=== PATIENT | male | born 1955 ===

== ENCOUNTER 2019-10-08 17:56 | Outpatient (REF) | payer BC, SELFPAY ==
[2019-10-08 19:56] LABS: HCT 45.6 % (40.0-50.0); HGB 16.3 g/dL (13.5-17.5); Mean Corp. HGB Concentration 35.7 g/dL (32.0-36.0); Mean Corpuscular Volume 89.6 fL (80-95); Mean Platelet Volume 8.3 fL (8.0-11.0); Platelet Count 374 x1000/uL (130-400); RBC 5.09 m/cumm (4.50-6.00); RBC Distribution Width 12.7 % (11.8-14.1); White Blood Cell Count 7.44 k/cumm (4.4-10.8)
[2019-10-08 20:17] LABS: TSH 3.49 uIU/mL (0.36-3.74)
[2019-10-08 21:01] LABS: Hemoglobin A1C 5.3 % (3.8-5.6)
== END 2019-10-08 18:16 ==
LOC: NCHCN 17:56
PROVIDERS: PCP Internal Medicine; Visit Provider Internal Medicine
DX: Z00.00 Encounter for general adult medical examination without abnormal findings (principal); I10 Essential (primary) hypertension; E78.5 Hyperlipidemia, unspecified
CPT/HCPCS: 85027; 83036; 84443

== ENCOUNTER 2020-12-05 16:28 | Outpatient (REF) | payer MEDICARE, BC, SELFPAY ==
[2020-12-05 20:50] LABS: Anion Gap 10.2 mmol/L (3-11); BUN 13 mg/dL (7-18); CO2 23.8 mmol/L (21.0-32.0); CREATININE 0.9 mg/dL (0.70-1.30); Calcium 9.3 mg/dL (8.5-10.1); Chloride 104 mmol/L (98-107); Glucose 106 mg/dL (74-106); Potassium 3.9 mmol/L (3.5-5.1); Sodium 138 mmol/L (136-145); TSH 4.28 uIU/mL (0.36-3.74)
== END 2020-12-05 16:29 | disposition home or self-care (01) ==
LOC: NCHCN 16:28
PROVIDERS: PCP Internal Medicine; Visit Provider Internal Medicine
DX: I10 Essential (primary) hypertension (principal)
CPT/HCPCS: 80048; 84443